=== PATIENT | male | born 1935 | race Hispanic/Latino ===

== ENCOUNTER 2018-03-18 10:21 | Outpatient (CLI) | payer MEDICARE, BC | END 2018-03-18 10:22 | disposition home or self-care (01) | LOC: RAD 10:21 ==

== ENCOUNTER 2018-04-02 09:19 | Outpatient (CLI) | payer MEDICARE, BC | END 2018-04-02 09:20 | disposition home or self-care (01) | LOC: RAD 09:19 | DX: J44.9 Chronic obstructive pulmonary disease, unspecified (principal); Z01.811 Encounter for preprocedural respiratory examination ==

== ENCOUNTER 2018-07-16 08:52 | Outpatient (CLI) | payer MEDICARE | END 2018-07-16 08:53 | disposition home or self-care (01) | LOC: RAD 08:52 ==